=== PATIENT | female | born 1960 | race Caucasian/White ===

== ENCOUNTER 2022-03-06 06:03 | Day surgery (SDC) | payer BC ==
[2022-03-02 11:49] VITALS: BMI 28.8
[2022-03-06] MEDS ORDERED: CEFAZOLIN 2 GM in DEXTROSE 5%-WATER - 50 ML IVPB ONE (07:00)
[2022-03-06] MEDS ORDERED: TRANEXAMIC ACID 1000 MG/10 ML VIAL IVPUSH ONE (07:00)
[2022-03-06] MEDS ORDERED: MIDAZOLAM HCL 2 MG/2 ML SINGLE DOSE VIAL ONE (07:16)
[2022-03-06] MEDS ORDERED: ONDANSETRON 4 MG/2 ML VIAL ONE ×2 (07:16→09:03)
[2022-03-06] MEDS ORDERED: ceFAZolin SODIUM 1 GM VIAL ONE (07:16)
[2022-03-06] MEDS ORDERED: BUPIVACAINE LIPOSOME/PF (EXPAREL) 266 MG/20 ML VIAL ONE (07:16)
[2022-03-06] MEDS ORDERED: DEXAMETHASONE SOD PHOSPHATE 4 MG/1 ML VIAL ONE ×2 (07:16→09:03)
[2022-03-06] MEDS ORDERED: BUPIVACAINE HCL/PF 0.5% (5MG/ML) 10 ML VIAL ONE (07:17)
[2022-03-06] MEDS ORDERED: PROPOFOL 40 ML ONE (07:57)
[2022-03-06] MEDS ORDERED: SUCCINYLCHOLINE CHLORIDE 200 MG/10 ML SYRINGE ONE (07:57)
[2022-03-06] MEDS ORDERED: SODIUM CHLORIDE 0.9% P/F 10 ML VIAL IJ ONE (08:35)
[2022-03-06] MEDS ORDERED: PHENYLEPHRINE HCL 10 MG/1 ML SINGLE DOSE VIAL ONE (08:35)
[2022-03-06] MEDS ORDERED: TRANEXAMIC ACID 1000 MG/10 ML VIAL ONE (09:21)
[2022-03-06] MEDS ORDERED: ONDANSETRON 4 MG/2 ML VIAL IVPUSH PRN (10:17)
[2022-03-06] MEDS ORDERED: MAGNESIUM HYDROX 2400MG/30ML ORAL SUSPENSION 30 ML CUP PO PRN (10:17)
[2022-03-06] MEDS ORDERED: MAG HYDROX/AL HYDROX/SIMETH 30 ML UNIT-DOSE CUP PO PRN (10:17)
[2022-03-06] MEDS ORDERED: LACTATED RINGERS SOLUTION 1,000 ML IV SCH (10:30)
[2022-03-06] MEDS ORDERED: oxyCODONE HCL 5 MG TABLET PO PRN ×4 (10:38→14:11)
[2022-03-06] MEDS ORDERED: ACETAMINOPHEN 1000 MG/100 ML BAG IVPB ONE (10:38)
[2022-03-06] MEDS ORDERED: HYDROmorphone HCL 2 MG TABLET PO PRN (12:46)
[2022-03-06 15:55] LABS: HIV INTERPRETATION NEGATIVE (NEGATIVE)
[2022-03-06] MEDS: CEFAZOLIN SODIUM 2 GM in DEXTROSE 5%-WATER 100 ML IVPB SCH (16:13)
[2022-03-06 18:33] VITALS: RESP 18
[2022-03-06] MEDS: ACETAMINOPHEN 500 MG TABLET (FP) PO SCH (18:59)
[2022-03-06] MEDS: ASPIRIN COATED 81 MG TABLET.EC PO SCH (21:30)
[2022-03-06] MEDS: SENNOSIDES/DOCUSATE COMBO (SENNA PLUS) TABLET (UD) PO SCH (21:30)
[2022-03-06] MEDS: FAMOTIDINE 10 MG TABLET PO SCH (21:30)
[2022-03-06] MEDS ORDERED: ROSUVASTATIN CA 20 MG TABLET PO SCH (22:00)
[2022-03-07] MEDS: CEFAZOLIN SODIUM 2 GM in DEXTROSE 5%-WATER 100 ML IVPB SCH (00:35)
[2022-03-07] MEDS: ACETAMINOPHEN 500 MG TABLET (FP) PO SCH (04:00)
[2022-03-07] MEDS: ASPIRIN COATED 81 MG TABLET.EC PO SCH (09:43)
[2022-03-07] MEDS: SENNOSIDES/DOCUSATE COMBO (SENNA PLUS) TABLET (UD) PO SCH (09:43)
[2022-03-07] MEDS: FAMOTIDINE 10 MG TABLET PO SCH (09:43)
[2022-03-07] MEDS: amLODIPine BESYLATE 5 MG TABLET (FP) PO SCH ×2 (09:43→11:00)
[2022-03-07] MEDS ORDERED: ASPIRIN 325 MG TABLET PO SCH (10:00)
[2022-03-07] MEDS ORDERED: MULTIVITAMINS (DAILY MVI) TABLET (FP) PO SCH (10:00)
[2022-03-07] MEDS ORDERED: CELECOXIB 200 MG CAPSULE PO SCH (10:00)
[2022-03-07] MEDS ORDERED: PATIENT'S OWN MEDICATION (NON-FORMULARY) (Multivitamin [Multivitamin] 1 EACH Tablet) PO SCH (10:00)
[2022-03-07] MEDS ORDERED: DEXAMETHASONE SOD PHOSPHATE 4 MG/1 ML VIAL IVPUSH ONE (10:00)
[2022-03-07 11:07] VITALS: BP 116/57; PULSE 74; TEMP 97
== END 2022-03-07 11:11 | disposition home or self-care (01) ==
LOC: FASUSAT 06:03 → FM/S 11:35 → FASUSAT 03-07 11:11
PROVIDERS: ATTEND Orthopaedic Surgery
PROC: 0SRC0J9 Replacement of Right Knee Joint with Synthetic Substitute, Cemented, Open Approach (ICD-10-PCS; principal; 2022-03-06 08:14)
DX: M17.11 Unilateral primary osteoarthritis, right knee (principal)
CPT/HCPCS: 27447; C1776; 36415; 73560-TC-RT-FY; 84460; 86803; 87340; 87389; 94760; 97010-GP; 97116-GP; 97162-GP; C1889